=== PATIENT | male | born 1995 | race Two or more races ===

== ENCOUNTER 2019-05-22 03:13 | Emergency (ER) | payer SELFPAY ==
[~2019-05-22] VITALS: Ht 188 cm; Wt 113.4 kg
[2019-05-22 03:20] VITALS: BP 136/87
--- NOTE | 2019-05-22 03:20 | NUR ---
ED Nurse Note: Patient was BIBA from home, due to left eye pain. Patient presented anxious, AAO x4, VSS at this time.
[2019-05-22] MEDS ORDERED: Fluorescein Strips BOTH EYES ONE (04:00)
[2019-05-22] MEDS ORDERED: Tetracaine 0.5% Opth 4ml Soln LEFT EYE ONE (04:00)
--- NOTE | 2019-05-22 04:04 | Emergency Room Report ---
History of Present Illness General Chief Complaint: Eye Problems Source: Patient Present Illness HPI Disclaimer: Please note that this report is being documented using [employer] technology. This can lead to erroneous entry secondary to incorrect interpretation by the dictating instrument. HPI: 23-year-old male with history of schizophrenia and bipolar disorder presents for evaluation of blurred vision and eye pain. Reports symptoms for a few hours. Denies any trauma to the orbits but he reports bilateral burning sensation and blurred vision in the left eye with double vision in the right eye. Denies foreign body sensation. Denies pain with extraocular movements, eyelid swelling, pressure behind his eyes, headache. Does not wear contact lenses and no prior history of eye conditions. Does not follow with a doctor regularly. He takes no medications. No recent illness. PMH: Bipolar disorder, schizophrenia PSH: Denies Allergies: Denies Social Hx: Denies Allergies: Coded Allergies: No Known Allergies (Unverified , 05/22/19) Nursing Documentation-PMH Hx Hypertension: Yes History Of Psychiatric Problem: Yes Review of Systems All Other Systems: negative except mentioned in HPI Physical Exam Vital Signs Date Time Temp Pulse Resp B/P (MAP) Pulse Ox O2 Delivery O2 Flow Rate FiO2 05/22/19 03:11 98.2 88 18 136/87 (103) 96 Room Air General: Awake and alert, no acute distress HEENT: NC/AT. EOMI. Conjunctiva are injected bilaterally. No purulent drainage. Pupils are 4 mm and reactive bilaterally. PERRLA. Wood's lamp examination shows no fluorescein uptake, no dendrites, no abrasions, no ulcers over the cornea bilaterally. Intraocular pressures are 19 mmHg OS, and 16 mmHg OD. No hyphema, no hypopyon. Resp: Normal work of breathing Skin: Intact. No abrasions, laceration or rash over the exposed skin MSK: Normal tone and bulk. Moving all extremities. No obvious deformity. Neuro: Awake and alert. Flat affect, some tangential thinking though redirectable. Medical Decision Making Homeless Attestation Patient has been medically screened and is stable for outpatient follow up Diagnostic Impression: Primary Impression: Blurred vision Additional Impression: Eye pain ER Course 23-year-old male presents for evaluation of eye discomfort and blurred vision. Differential includes but not limited to conjunctivitis, preseptal cellulitis, orbital cellulitis, bacterial conjunctivitis, allergic conjunctivitis, corneal abrasion, ulcer, optic neuritis, orbital trauma. Patient adamantly denies orbital trauma. No clinical evidence of preseptal or septal cellulitis, optic neuritis and no findings consistent with corneal abrasion, ulcer or HSV infection. The patient's exam is changing. He has multiple visual acuity testing all of which have been different. He noted some improvement after having the tetracaine placed but I feel there is a subjective component to this and the patient has a secondary gain. He was found sleeping comfortably on my reevaluation prior to discharge. Do not believe he requires emergent ophthalmology evaluation but can follow-up as an outpatient. We will start on artificial tears for a possible viral conjunctivitis given the irritation though it may be lack of sleep or substance abuse though the patient denies. He will follow-up with primary care and referral to ophthalmology as needed. He is ambulate without difficulty in the emergency department navigating obstacles. He has clearly intact gross vision during my examination to confrontation with intact tracking. Will be given some food and referred to primary care. And return to the emergency department new or worsening symptoms. Last Vital Signs Date Time Temp Pulse Resp B/P (MAP) Pulse Ox O2 Delivery O2 Flow Rate FiO2 05/22/19 03:20 98.2 18 136/87 96 Room Air 05/22/19 03:11 88 Disposition: HOME, SELF-CARE Condition: Stable Scripts Dextran 70/Hypromellose (ARTIFICIAL TEARS) 1 Each Droperette 1 EACH OP QID for 5 Days, #1 EA Prov: Bruno Desai MD 05/22/19 Referrals: NOT CHOSEN IPA/MD,REFERRING (PCP) Bruno Desai MD May 22, 2019 04:04
[2019-05-22] MEDS ORDERED: ARTIFICIAL TEA1 EAC2 OP (04:50)
[2019-05-22 05:05] VITALS: BP 136/87
--- NOTE | 2019-05-22 05:49 | NUR ---
ED Nurse Note: Pt cleared by health care Provider for discharge. DC instructions/prescription was given and explained to pt and verbalized understanding of teachings. All medical deviecs such as ID band removed. Pt is AAO x4, ambulatory and left with all personal belongings.
== END 2019-05-22 05:05 | disposition home or self-care (01) ==
LOC: EDBD 03:13 → EMR 03:34
DX: H57.13 Ocular pain, bilateral (principal); H53.8 Other visual disturbances; I10 Essential (primary) hypertension; F31.9 Bipolar disorder, unspecified; F20.9 Schizophrenia, unspecified
CPT/HCPCS: 99283